=== PATIENT | male | born 1965 | race Caucasian/White ===

== ENCOUNTER 2021-11-09 12:23 | Emergency (ER) | payer OTHER ==
[~2021-11-09] VITALS: Ht 167.6 cm; Wt 95.5 kg
[2021-11-09] MEDS ORDERED: KETOROLAC TROMETHAMINE 60 MG/2 ML VIAL IM ONE (15:45)
[2021-11-09] MEDS ORDERED: HALOPERIDOL LACTATE 5 MG/ML VIAL ONE (16:16)
[2021-11-09 17:37] VITALS: BP 144/97
[2021-11-09] MEDS ORDERED: IBUP-2070 PO (17:43)
== END 2021-11-09 18:00 | disposition home or self-care (01) ==
LOC: EMS 12:30
DX: S40.021A Contusion of right upper arm, initial encounter (principal); I10 Essential (primary) hypertension; W22.8XXA Striking against or struck by other objects, initial encounter; Y93.89 Activity, other specified; Y92.89 Other specified places as the place of occurrence of the external cause; Y99.8 Other external cause status
CPT/HCPCS: 99285; 73030; 73080; 73090; 96372; J1630; J1885; 99284